=== PATIENT | male | born 1960 | race Two or more races ===

== ENCOUNTER 2019-05-25 11:25 | Inpatient (IN) | payer OTHER ==
[~2019-05-25] VITALS: Ht 162.6 cm; Wt 65.2 kg
[2019-05-25] MEDS ORDERED: SODIUM CHLORIDE 0.9% 1,000 ML IV ONE ×2 (11:45→14:00)
[2019-05-25 12:02] LABS: Basophils # (auto) 0.1 uL; Basophils % (auto) 0.6 % (0.0-2.0); Eosinophils # (auto) 0.5 uL; Eosinophils % (auto) 5.1 % (0.0-7.0); Hematocrit 44.8 % (41.0-53.0); Hemoglobin 15.1 g/dL (13.5-17.5); Lymphocytes # (auto) 2.8 uL; Lymphocytes % (auto) 26.2 % (10.0-50.0); Mean Corpuscular Hemoglobin 30.2 pg (28.0-32.0); Mean Corpuscular Hgb Conc. 33.7 g/dL (32.0-36.0); Mean Corpuscular Volume 89.7 fL (80.0-100.0); Monocytes # (auto) 0.7 uL; Monocytes % (auto) 6.5 % (0.0-12.0); Neutrophils # (auto) 6.5 uL; Neutrophils % (auto) 61.6 % (37.0-80.0); Nucleated Red Blood Cells % 0.1 %; Platelet Count (auto) 231 10^3/uL (140-450); Red Blood Cells 4.99 10^6/uL (4.5-5.90); Red Cell Distribution Width 13.3 % (11.8-14.3); White Blood Cell 10.5 10^3/uL (4.4-10.8)
[2019-05-25 12:17] LABS: INR 1.07 (0.9-1.15); Partial Thromboplastin Time 22.2 sec (23.64-32.05)
[2019-05-25 12:20] LABS: BUN/Creatinine Ratio 23.2; Potassium 4.3 mmol/L (3.5-5.1)
[2019-05-25 12:25] LABS: Bilirubin, Total 0.5 mg/dL (0.2-1.0); Total Protein 8.2 g/dL (6.4-8.2)
[2019-05-25] MEDS ORDERED: ASPirin 81 mg TAB PO ONE (12:45)
[2019-05-25] MEDS ORDERED: PANTOPRAZOLE 40 MG/10 ML VIAL INJ IV ONE (12:45)
[2019-05-25] MEDS ORDERED: ENOXAPARIN SOD 80 MG/0.8ML SYRINGE SC ONE (12:45)
[2019-05-25] MEDS ORDERED: HEPARIN DRIP/D5W 100UNITS/ML 250 ML IV SCH ×2 (13:12→13:45)
[2019-05-25] MEDS ORDERED: HEPARIN SODIUM (PORCINE) 5000 UNITS/ML 1ML VIAL IV ONE (13:15)
[2019-05-25] MEDS ORDERED: TEMAZEPAM 15 MG CAP PO PRN (13:30)
[2019-05-25] MEDS ORDERED: ACETAMINOPHEN 500 MG TAB PO PRN (13:30)
[2019-05-25] MEDS ORDERED: MORPHINE SULFATE 4 MG/ML SYR/VIAL IV PRN (13:30)
[2019-05-25] MEDS ORDERED: DEXTROSE (50%) 50ML SYRG IV PRN (13:30)
[2019-05-25] MEDS ORDERED: NITROGLYCERIN 0.4 MG SL TAB SL PRN (13:30)
[2019-05-25] MEDS ORDERED: traMADol HCL 50 MG TAB PO PRN (13:30)
[2019-05-25] MEDS ORDERED: PROMETHAZINE HCL 25 MG/ML 1ML IV PRN (13:30)
[2019-05-25] MEDS ORDERED: MORPHINE SULF INJ 2 MG/ML SYRINGE 1ML IV PRN (13:30)
[2019-05-25 14:00] LABS: CRP High Sensitivity 0.06 mg/dL (< 0.3)
[2019-05-25 15:11] LABS: Urine Bacteria NONE SEEN /hpf (None Seen); Urine Blood Negative /uL (Negative); Urine Hyaline Cast FEW /lpf (0 - 2); Urine Specific Gravity 1.017 (1.001-1.035); Urine WBC 2 /hpf (0 - 3)
[2019-05-25 15:27] LABS: Alcohol, Urine < 3.0 mg/dL (0-5); Amphetamine Screen, Urine NEGATIVE (NEGATIVE); Barbiturate Scree,Urine NEGATIVE (NEGATIVE); Benzodiazephine Screen, Urine NEGATIVE (NEGATIVE); Cannabinoid Screen, Urine POSITIVE (NEGATIVE); Cocaine Screen, Urine NEGATIVE (NEGATIVE); Opiate Scree,Urine NEGATIVE (NEGATIVE); Phencyclidine Screen, Urine NEGATIVE (NEGATIVE)
[2019-05-25] MEDS: SODIUM CHLORIDE 0.9% 1,000 ML IV SCH ×2 (15:47→20:10)
[2019-05-25] MEDS: ACCU-CHEK COMFORT CURVE STRIP VI SCH (18:27)
[2019-05-25 19:02] LABS: INR 1.12 (0.9-1.15); Partial Thromboplastin Time 35.9 sec (23.64-32.05)
[2019-05-25] MEDS ORDERED: ATORVASTATIN 20 MG TAB PO SCH (22:00)
[2019-05-25 23:14] VITALS: BP 120/72
--- NOTE | 2019-05-25 23:15 | NUR ---
Admit to [facility] admitted to [facility] via gurney on vehicle monitor technician, and portable 02. Patient transferred to bed, connected to unit monitoring and oxygen, and weighed by bedscale. Patient oriented to Elvira Onofre, primary RN, unit, room, bed, and unit policies regarding patient care and visiting hours. All questions and concerns addressed, patient verbalized understanding. Pt upset about ER experience but RN was able to calm him down. Pt also upset that the staff would be mad at him for his behavior in ER, RN assured him that staff does not hold grudges or retain poor feelings from previous experiences with patients. Pt stable at this time and denies pain. Pt states he feels better having been put in a room and in a regular bed stating that the gurney had been hurting his tailbone. Will continue to monitor.
[2019-05-26] VITALS (7 sets, daily range): BP systolic 96–123; BP diastolic 58–78
[2019-05-26] MEDS ORDERED: LISI40TA PO (00:30)
[2019-05-26] MEDS ORDERED: NITR0.4S29 SL (00:30)
[2019-05-26] MEDS ORDERED: ASPI81CH43 PO (00:30)
[2019-05-26] MEDS ORDERED: CLOP75TA28 PO (00:30)
[2019-05-26] MEDS ORDERED: ATOR80TA PO (00:30)
[2019-05-26] MEDS ORDERED: FAM20T PO (00:30)
[2019-05-26] MEDS: ATORVASTATIN 20 MG TAB PO SCH ×2 (00:36→21:09)
[2019-05-26] MEDS: SODIUM CHLORIDE 0.9% 1,000 ML IV SCH ×3 (01:34→16:10)
[2019-05-26 05:58] LABS: Albumin 2.7 g/dL (3.4-5.0); Amylase 87 U/L (25-115); BUN/Creatinine Ratio 21.8; Calcium 7.4 mg/dL (8.5-10.1); Lipase 173 U/L (73-393)
[2019-05-26] MEDS: ACCU-CHEK COMFORT CURVE STRIP VI SCH ×3 (06:00→12:00)
[2019-05-26 06:03] LABS: Bilirubin, Total 0.4 mg/dL (0.2-1.0); Total Protein 5.9 g/dL (6.4-8.2)
--- NOTE | 2019-05-26 07:30 | NUR ---
RECEIVED PATIENT SITTING UP IN THE BED, O2 AT 2L BY N/C, A/O TIMES 4, STATES HE CAN WALK TO THE BR, NS INFUSING INTO THE RAC AT 150ML/HR BY THE IV PUMP, DENIES CHEST PAIN, SALINE LOCK TO THE LAC INTACT FLUSHED AND PATENT,
--- NOTE | 2019-05-26 07:53 | NUR ---
Pt remained stable this shift. No S/S of pain or distress. Pt has been educated and encouraged to use urinal and only get up after calling staff for assist, however it should be noted that pt is stable on his feet and ambulates well. Pt has been NPO since midnight. Report given to AM shift, care endorsed.
--- NOTE | 2019-05-26 08:00 | NUR ---
SITTING, UP IN THE BED WATCHING TV, DENIES CHEST PAIN
[2019-05-26] MEDS ORDERED: ADENOSINE 115 MG in GIVE UN-DILUTED 0 ML IV STA (08:27)
--- NOTE | 2019-05-26 09:00 | NUR ---
TALK WITH THE PATIENT AND STATED HE NEVER REALLY HAD CHEST PAIN,, STATED TO STARTED SWEAT AND FELT WEAK AND CHECKED HIS B/P AND IT WAS LOW, BUT HE TOOK A NITRO AND STATED HE FELT BETTER SOON IT PUT IT ON HIS TONGUE
[2019-05-26] MEDS: ASPirin 81 mg TAB PO SCH (09:52)
[2019-05-26] MEDS: CLOPIDOGREL BISULFATE 75 MG TAB PO SCH (09:52)
[2019-05-26] MEDS: PANTOPRAZOLE 40 MG TAB PO SCH (09:52)
--- NOTE | 2019-05-26 09:52 | NUR ---
EXPLAIN MEDIATIONS TO THE PATIENT REGARDING THE DOSAGE,USAGE AND THE SIDE EFFECTS, VERBALIZED HE UNDERSTOOD AND MEDS GIVEN ORDERED
--- NOTE | 2019-05-26 10:15 | NUR ---
PATIENT TAKEN TO STRESS TEST BY THE CHAIR
--- NOTE | 2019-05-26 11:25 | NUR ---
FRIEND IN TO VISIT WITH THE PATIENT
--- NOTE | 2019-05-26 11:25 | NUR ---
BACK FROM THE STRESS TEST AND TOLERATED THE PROCEDURE
--- NOTE | 2019-05-26 12:40 | NUR ---
DR HOLLOWAY INTO SEE THE PATIENT AND STOPPED THE ACCU CHECKS
--- NOTE | 2019-05-26 13:00 | NUR ---
GOT A LATE LUNCH AND ATE IT NO HELP NEEDED TO EAT
--- NOTE | 2019-05-26 13:30 | NUR ---
TOOK OFF THE O2 AND THE O2 SAT HAS STAYED GREATER THAN 95%
--- NOTE | 2019-05-26 14:50 | NUR ---
RECEIVED CALL FROM [employer] AT [facility] JUST TO GET A UPDATE ON THE PATIENT
--- NOTE | 2019-05-26 15:17 | NUR ---
SITTING UP IN THE BED TALKING ON THE PHONE
--- NOTE | 2019-05-26 15:34 | NUR ---
FRIEND IN VISIT WITH THE PATIENT
--- NOTE | 2019-05-26 15:42 | NUR ---
WALKED TO THE BR TO HAVE A BM NO HELP NEEDED
--- NOTE | 2019-05-26 16:00 | NUR ---
SYDNEE ARANDA CAME TO SEE THE PATIENT AND STATED THAT THE STRESS TEST PRELIMINARY WAS NEGATIVE BUT SHE HAD TO WAIT FOR THE FREELANCE PHOTOGRAPHER TO WRITE THE FINAL REPORT
--- NOTE | 2019-05-26 16:40 | NUR ---
SITTING UP IN THE BED, WATCHING TV, FRIEND WITH THE PATIENT
--- NOTE | 2019-05-26 17:47 | NUR ---
SITTING UP IN THE BED, WATCHNG TV, FRIEND WITH THE PATIENT, NO COMPLIANT OF PAIN
--- NOTE | 2019-05-26 18:30 | NUR ---
SITTING UP IN BED EATING HIS DINNER, NO HELP NEEDED, FRIEND AT THE BEDSIDE, O2 BY R/A, NS AT 150ML/HR INFUSING BY THE IV PUMP INTO THE LAC, RAC SALINE LOCK FLUSHED AND PATENT, GETS UP AND GOES TO THE BR, DENIES PAIN, WILL CONTINUE TO MONITOR AND GIVE REPORT TO THE NEXT SHIFT
--- NOTE | 2019-05-26 19:55 | NUR ---
Opening Shift Note Assumed care of patient, awake and alert and oriented x4. No S/S of distress/SOB or pain. Patient on RA with clear lung sounds throughout. Left AC 20g infusing saline at 150ml, right AC 20 g flushed and patent. Instructed on POC and to call for assist PRN, will continue to monitor for changes Q1hr and PRN. See interventions for complete assessment.
[2019-05-27] VITALS: BP 119/76
[2019-05-27] MEDS: SODIUM CHLORIDE 0.9% 1,000 ML IV SCH ×3 (00:58→12:10)
[2019-05-27 04:00] VITALS: BP 124/88
[2019-05-27 04:49] LABS: Basophils # (auto) 0 uL; Basophils % (auto) 0.4 % (0.0-2.0); Eosinophils # (auto) 0.3 uL; Eosinophils % (auto) 3.6 % (0.0-7.0); Hematocrit 36.1 % (41.0-53.0); Hemoglobin 12.1 g/dL (13.5-17.5); Lymphocytes # (auto) 2.2 uL; Lymphocytes % (auto) 23.4 % (10.0-50.0); Mean Corpuscular Hemoglobin 30.1 pg (28.0-32.0); Mean Corpuscular Hgb Conc. 33.6 g/dL (32.0-36.0); Mean Corpuscular Volume 89.4 fL (80.0-100.0); Monocytes # (auto) 0.5 uL; Monocytes % (auto) 5.3 % (0.0-12.0); Neutrophils # (auto) 6.2 uL; Neutrophils % (auto) 67.3 % (37.0-80.0); Nucleated Red Blood Cells % 0.1 %; Platelet Count (auto) 165 10^3/uL (140-450); Red Blood Cells 4.03 10^6/uL (4.5-5.90); Red Cell Distribution Width 12.9 % (11.8-14.3); White Blood Cell 9.3 10^3/uL (4.4-10.8)
--- NOTE | 2019-05-27 05:00 | NUR ---
COMPLETE LINEN CHANGE DONE
[2019-05-27 05:07] LABS: BUN/Creatinine Ratio 17.9; Calcium 7.8 mg/dL (8.5-10.1)
--- NOTE | 2019-05-27 07:19 | NUR ---
CARE ENDORSED TO DAY SHIFT RN PATIENT RESTING AWAKE IN BED WITH NO S/S OF DISTRESS OR SOB HR 56, POX 97%, RR 21 PATIENT REMAINED STABLE THROUGHOUT THE NIGHT NO S/S OF DISTRESS OR SOB NOTED
[2019-05-27 08:00] VITALS: BP 139/81
--- NOTE | 2019-05-27 08:00 | NUR ---
Opening Shift Note Assumed care of patient, awake and alert. Patient A&Ox4. Patient on the monitor. Patient on RA saturation at 94%. IV right AC 20G running NS at 150 and left AC 20G saline locked, both IV's patent, clean, intact and dry. No S/S of distress/SOB or pain. Instructed on POC and to call for assist. Bed locked and in the lowest position, side rails up x2, call light with in reach. Will continue to monitor.
--- NOTE | 2019-05-27 08:30 | NUR ---
Patient sitting up in bed eating breakfast independently. Will continue to monitor.
--- NOTE | 2019-05-27 10:00 | NUR ---
Medication dosages, usages, and side effects explained to Patient. Patient verbalized understanding. Will continue to monitor.
[2019-05-27] MEDS: CLOPIDOGREL BISULFATE 75 MG TAB PO SCH (10:04)
[2019-05-27] MEDS: PANTOPRAZOLE 40 MG TAB PO SCH (10:04)
[2019-05-27] MEDS: ASPirin 81 mg TAB PO SCH (10:04)
--- NOTE | 2019-05-27 10:30 | NUR ---
Dr. Salazar at bedside new orders to D/C patient home. No new prescriptions given. Patient has follow up appointment with [employer] through [place], Patient is to keep that appointment.
[2019-05-27 11:50] VITALS: BP 122/81
--- NOTE | 2019-05-27 12:30 | NUR ---
Patient sitting up in bed eating lunch independently. Will continue to monitor.
--- NOTE | 2019-05-27 14:20 | NUR ---
Patient discharged home. Discharge instructions given to patient. No new Prescriptions upon discharge. Patient verbalized understanding of instructions. Patient denies any pain/SOB or distress. Patient walked out with family. All belongings taken with patient.
== END 2019-05-27 14:25 | disposition home or self-care (01) | DRG 280 ==
LOC: ER 11:25 → TELE 11:26 → DOU IN ICU 23:07
PROVIDERS: ADMIT Internal Medicine; ATTEND Internal Medicine
DX: I21.A1 Myocardial infarction type 2 (principal); N17.0 Acute kidney failure with tubular necrosis; E44.0 Moderate protein-calorie malnutrition; E78.5 Hyperlipidemia, unspecified; E86.0 Dehydration; F12.90 Cannabis use, unspecified, uncomplicated; I12.9 Hypertensive chronic kidney disease with stage 1 through stage 4 chronic kidney disease, or unspecified chronic kidney disease; G89.29 Other chronic pain; I25.10 Atherosclerotic heart disease of native coronary artery without angina pectoris; N18.9 Chronic kidney disease, unspecified; Z79.02 Long term (current) use of antithrombotics/antiplatelets; Z79.82 Long term (current) use of aspirin; Z82.49 Family history of ischemic heart disease and other diseases of the circulatory system; Z95.5 Presence of coronary angioplasty implant and graft; Z83.3 Family history of diabetes mellitus; Z68.24 Body mass index [BMI] 24.0-24.9, adult
CPT/HCPCS: 36415; 71045; 74176; 78452; 80048; 80053; 80061; 80307; 81001; 82150; 82550; 82962; 83036; 83690; 83880; 84484; 85025; 85379; 85610; 85652; 85730; 86141; 93005; 93017; 93306; 96372; 96374; 96375; G0378; J0153